=== PATIENT | male | born 1975 | race Caucasian/White ===

== ENCOUNTER 2021-12-05 11:10 | Day surgery (SDC) | payer BC, OTHER ==
[~2021-12-05] VITALS: Ht 182.9 cm; Wt 89.4 kg
--- NOTE | ~2021-12-05 | O ---
[facility] [place] [address] OPERATIVE REPORT Name: MATILDE DIGGS Room #: 434-P [facility] M.R.#: [id number] Admission: 12/05/21 Attend Phys: Ritchie Kaur MD Discharge: Date of : 79 Report #: [id number] THIS REPORT FOR: cc: NO FAMILY PHYSICIAN or PCP NO FAMILY PHYSICIAN or PCP Ritchie Kaur MD ~ DATE OF SERVICE: 12/05/2021 PREOPERATIVE DIAGNOSIS: Right foot osteomyelitis. POSTOPERATIVE DIAGNOSIS: Right foot osteomyelitis. PROCEDURE: Right first ray amputation. SURGEON: Ritchie Kaur MD SCRUBBER SYSTEM ATTENDANT: None. ANESTHESIA: General. ESTIMATED BLOOD LOSS: Minimal. DRAINS: No drains. TOURNIQUET TIME: 30 minutes. DESCRIPTION OF PROCEDURE: The patient was brought to the operating room, where he was placed under general anesthesia. Once under adequate general anesthesia, his right lower extremity was prepped and draped in a sterile manner. The extremity was elevated, exsanguinated, and tourniquet placed at 300 mmHg. A fishmouth-type incision about the first ray was made just proximal to the patient's open wound. Once this was achieved, sharp dissection along the metatarsal was achieved to expose proximally. Once exposed, a sagittal saw was used to transect the first metatarsal and the amputation was then completed. Once completed, the wound was irrigated copiously and closed over a Hemovac drain with 2-0 PDS and 2-0 nylon suture. The wound was then dressed with Xeroform, 4 x 4's, and a sterile soft compressive dressing was placed. Tourniquet was let down at 30 minutes. Toes were pink and warm with good capillary refill. There were no complications from the procedure. The patient tolerated the procedure well and was to the recovery room without incident. By: 1359 1510 Ritchie Kaur MD /nt
[~2021-12-05 11:10] MED LIST: HUMALOG KW100 UNIT/1 SUBQ; HUMALOG100 UNIT/1 SUBQ; LANTUS SOL100 UNIT/1 SUBQ; METFORMIN HCL500 MG PO
[2021-12-05 12:20] VITALS: BP 170/95
--- NOTE | 2021-12-05 14:18 | EKG ---
[address] [address] ELECTROCARDIOGRAM REPORT Name: MATILDE DIGGS Room #: REG [facility]#: [id number] Admission: 12/05/21 Attend Phys: Ritchie Kaur MD Discharge: Date of : 79 Report #: [id number] [facility]ly [facility] Test Date: 2021-12-05 Test Time: 12:21:33 Pat Name: MATILDE DIGGS Department: Room: Gender: [employer] Supervisor: BLESSING : 1975 Requested By: Ritchie Kaur Order Number: [id number] : Nitin Boyd Measurements Intervals [place] Rate: 86 P: 64 OR: 143 QRS: 63 QRSD: 102 T: 37 QT: 381 QTc: 456 Interpretive Statements Sinus rhythm No previous ECG available for comparison Electronically Signed On 12-05-2021 14:18:25 INSURANCE COLLECTOR by Nitin Boyd [email or web address] <ELECTRONICALLY SIGNED> By: Nitin Boyd MD, [facility] 12/05/21 1418 1221 1221 Nitin Boyd MD, FACC /EPI
[2021-12-05 16:34] VITALS: BP 170/95
[2021-12-05 17:15] VITALS: BP 157/103
[2021-12-05 19:21] VITALS: BP 152/105
--- NOTE | 2021-12-06 03:42 | NUR ---
RECEIVED CARE OF THIS PATIENT AT 1900. PATIENT ALERT AND ORIENTED X4. NWB ON R FOOT. USES URINAL AND BSC. HAD HEMAVAC TO R FOOT BUT WHILE MOVING IN BED IT BROKE. TAPED UP. PICC LINE PATNET. ACCUCHECK 313. 9 UNITS LISPRO INSULIN GIVEN. C/O PAIN, MED GIVEN. SLEPT MOST OF NIGHT.
[2021-12-06 06:13] LABS: ABSOLUTE NEUTROPHILS 6.9 thou/uL (1.4-8.2); BASOPHILS 0.7 % (0.0-2.0); EOSINOPHILS 4.2 % (0.0-3.0); HEMATOCRIT 35.3 % (42.0-52.0); HEMOGLOBIN 11.5 gm/dL (14.0-18.0); LYMPHOCYTES 14.6 % (24.0-44.0); MCH 31.4 pg (26.0-34.0); MCHC 32.6 g/dL (28.0-37.0); MCV 96.2 fL (80.0-100.0); MONOCYTES 9.8 % (1.0-8.0); PLATELET COUNT 448 thou/uL (150-400); POLYS 70.7 % (36.0-66.0); RBC 3.67 mil/uL (4.50-6.00); WBC 9.7 thou/uL (4.0-11.0)
[2021-12-06 06:42] LABS: ALBUMIN 3.1 g/dL (3.4-5.0); CALCIUM 8.7 mg/dL (8.5-10.1); CREATININE 0.7 mg/dL (0.7-1.3); POTASSIUM 4.2 mmol/L (3.5-5.1); TOTAL BILIRUBIN 0.2 mg/dL (0.2-1.0); TOTAL PROTEIN 7.6 g/dL (6.4-8.2)
[2021-12-06 07:45] VITALS: BP 136/89
[2021-12-06 11:45] VITALS: BP 128/60
[2021-12-06 16:28] VITALS: BP 115/78
[2021-12-06 16:33] VITALS: BP 115/78
[2021-12-06 20:49] VITALS: BP 170/95
--- NOTE | 2021-12-08 17:19 | HC ---
[facility] [place] [address] CONSULTATION Name: MATILDE DIGGS Room #: DEP [facility] M.R.#: [id number] Admission: 12/05/21 Attend Phys: Ritchie Kaur MD Discharge: 12/06/21 Date of : 79 Report #: [id number] THIS REPORT FOR: cc: NO FAMILY PHYSICIAN or PCP NO FAMILY PHYSICIAN or PCP Isaias Rajput MD ~ DATE OF SERVICE: 12/05/2021 INFECTIOUS DISEASE CONSULTATION REASON FOR CONSULTATION: I was asked to evaluate concerning right first metatarsal osteomyelitis. HISTORY OF PRESENT ILLNESS: The patient is a 46-year-old, underlying history of diabetes, peripheral neuropathy, who a year ago has had distal foot resection including toes 2 through 5 at transmetatarsal region. He subsequently developed osteomyelitis of his first metatarsal, which failed to improve despite debridement and local wound care along with antibiotic therapy. I do not have his microbiology reports. He has been seen at [facility]. Last week, he was placed on ceftriaxone by Dr. Gianni Trevizo. He has a left upper extremity PICC, which has been functioning well. He was seen by Vincent, who recommended a ray amputation, which was performed today without complication. The patient denies any fever, chills or sweats. No nausea, vomiting or diarrhea. No cough or sputum production. No known exposure to COVID-19. COVID screening was negative. ALLERGIES: None known. REVIEW OF SYSTEMS: A 14-point review of system was negative other than what has been described above. PAST MEDICAL HISTORY: Diabetes, hypertension, right foot osteomyelitis. MEDICATIONS: As noted on JAN, which was reviewed. FAMILY HISTORY: Noncontributory. SOCIAL HISTORY: Lives alone, has difficulty offloading his foot. He has a dog. He has to take care of it and walk every day. Nonsmoker. No significant alcohol intake. PHYSICAL EXAMINATION: GENERAL: Afebrile and hemodynamically stable. He is alert, cooperative and pleasant. No acute distress. HEENT: Eyes without scleral icterus. Mouth without mucositis. NECK: Supple. [facility] [address] [place] [address] CONSULTATION Name: GEOFF DIGGSURO Room #: DEP [facility]..#: [id number] Admission: 12/05/21 Attend Phys: Ritchie Kaur MD Discharge: 12/06/21 Date of : 79 Report #: [id number] LUNGS: Clear. HEART: Regular ABDOMEN: Soft and nontender. Pulses in his left foot within normal limits. SKIN: He had peripheral neuropathy with decreased sensation in his toes on the left. On the right, he has surgical wrap status post amputation of his first ray. He had a Hemovac in place. Trace edema in the left lower extremity. LABORATORY DATA: Blood glucose 184. COVID-19 screen negative. Cultures are pending. IMPRESSION: A 46-year-old underlying history of diabetes, peripheral neuropathy with osteomyelitis of his first metatarsal on the right, status post ray amputation. He is status post previous transmetatarsal amputations of the second through fifth toes. RECOMMENDATION: We will continue his IV antibiotic program with ceftriaxone. Check baseline laboratory studies. He will follow up with Dr. Gianni Trevizo in the outpatient clinic in 1 week. <ELECTRONICALLY SIGNED> By: Isaias Rajput MD 12/08/21 1719 1619 2337 Isaias Rajput MD /nt
--- NOTE | 2021-12-10 15:07 | PATH ---
[facility] [address] [place] [address] PATHOLOGY RPT PROCEDURE Name: DONTAEBRYANT Room #: DEP [facility] M.R.#: [id number] Admission: 12/05/21 Date of : 79 Discharge: 12/06/21 Report #: [id number] Path Case #: [id number] [facility] Accession Number: [id number] . 01 Material submitted: . foot - RIGHT FOOT. Modifiers: right . 01 Clinical history: . AMPUTATION OF TOES RIGHT FOOT OSTEOTOMY . 02 Diagnosis: Skin, bone and soft tissue "right foot", amputation: - Ulceration with extensive necrosis, acute and chronic inflammation, fibrosis, and underlying chronic osteomyelitis. - Negative for malignancy. (MLK/db; 12/10/2021) LBQ 12/10/2021 1419 Local . 02 Electronically signed: . Martina Cloud MD, Pathologist NPI- [id number] . 01 Gross description: . The specimen is received in formalin, labeled " Bryant Diggs, right foot" and consists of a right transmetatarsal amputation (8.8 cm in length x 6.4 x 6.4 cm) with an attached first digit with an attached unremarkable nail and with abundant skin and soft tissue attached on the lateral side. Also present within in the attached tissue lateral to the first digit is a portion of proposed bone which is most consistent with being contiguous with the absent second digit. The medial and plantar surface of the skin overlying the first digit displays a prominent well-circumscribed ulcer (7.7 x 4.5 cm) that involves the skin and underlying soft tissue at the surgical margin (inked black). The ulcer displays underlying exposed bone (1.7 x 1.6 cm) that is remarkably softened. Both bone margins are smooth, hard and unremarkable. No scars are identified in place of the second digit. The bone margin of the first digit is inked black and the bone margin from the bone in line with the absent second digit is inked blue. Also received in the same container are two gayle to pale yellow rubbery irregular portions of soft tissue (5.1 x 4.1 x 2.4 cm in aggregate). Photographs are taken. Metalsmith Apprentice sections are submitted following decalcification as follows: A1: Skin and underlying soft tissue at margin to include ulcer, represented A2: Surgical margin of first digit, submitted on edge, represented A3: Surgical margin from bone contiguous with the absent second digit, submitted on edge, [place] [address] PATHOLOGY RPT PROCEDURE Name: BRYANT DIGGS Room #: DEP [facility] Dimitris#: [id number] Admission: 12/05/21 Date of : 79 Discharge: 12/06/21 Report #: [id number] Path Case #: [id number] A4: Exposed and softened bone underlying ulcer and to include ulcer, represented A5: Ulcer, represented A6: Additional portions of soft tissue, represented (LOWER [place]; 12/08/2021) DKA/DKA 12/08/2021 1116 Local . 02 Pathologist provided ICD-10: L97.519, L08.9, M86.171 . 02 CPT . 298177, [id number] Specimen Comment: A courtesy copy of this report has been sent to [phone] Specimen Comment: Report sent to Performed at: 01 [facility] [address] [id number] MD Chun Shelton MD Phone: [phone] Performed at: 02 [facility] [address] [id number] MD Zbigniew Chow MD Phone: [phone]
== END 2021-12-06 17:45 | disposition home or self-care (01) ==
LOC: OR 11:10 → 4S 16:07 → OR 12-06 17:45
PROVIDERS: Specialist; ATTEND Orthopaedic Surgery Foot and Ankle Surgery
DX: E11.621 Type 2 diabetes mellitus with foot ulcer (principal); M86.171 Other acute osteomyelitis, right ankle and foot; L97.519 Non-pressure chronic ulcer of other part of right foot with unspecified severity; L08.9 Local infection of the skin and subcutaneous tissue, unspecified; M25.571 Pain in right ankle and joints of right foot; I10 Essential (primary) hypertension; Z98.890 Other specified postprocedural states; Z79.899 Other long term (current) drug therapy; Z20.822 Contact with and (suspected) exposure to COVID-19
CPT/HCPCS: 10102; 50010; 50101; 50386; 50951; 51412; 56525; 57091; 57180; 62110; 62900; 70005